=== PATIENT | male | born 1950 | race Caucasian/White ===

== ENCOUNTER 2016-08-26 06:10 | Day surgery (SDC) | payer MEDICARE, OTHER ==
--- NOTE | ~2016-08-26 | EGD ---
EGD REPORT [facility] [address] [id number] NAME: MARKO LINARES : [birth year] STATUS : REG [facility]#: [id number] AGE: 66 ADM/REG DATE : 08/26/16 MR#: [id number] REPORT SERV DATE: 08/26/16 DICTATED BY: LORRAINE SANCHEZ DATE: 08/26/16 REPORT STATUS : Draft TRANSCRIBED BY: [facility] DATE: 08/26/16 Endoscopy Center Patient Name: Marko Linares Date of : 1950 Attending MD: LORRAINE SANCHEZ MD Procedure Date No Time: 08/26/2016 Procedure: Upper GI endoscopy Indications: Dysphagia Referring MD: MARISOL ROWLAND Medicines: See the Anesthesia note for documentation of the administered medications Complications: No immediate complications. Procedure: Pre-Anesthesia Assessment: - ASA Grade Assessment: III - A patient with severe systemic disease. After obtaining informed consent, the endoscope was passed under direct vision. Throughout the procedure, the patient's blood pressure, pulse, and oxygen saturations were monitored continuously. The GIF [id number] was introduced through the mouth, and advanced to the second part of duodenum. The upper GI endoscopy was accomplished without difficulty. The patient tolerated the procedure well. Findings: The examined duodenum was normal. The entire examined stomach was normal. The cardia and gastric fundus were normal on retroflexion. A small hiatus hernia was present. A moderate Schatzki ring (acquired) was found at the gastroesophageal junction. A guidewire was placed and the scope was withdrawn. Dilation was performed with a Savary dilator with no resistance at 48 Fr. Impression: - Normal examined duodenum. - Normal stomach. - Hiatus hernia. - Moderate Schatzki ring. Dilated. Recommendation: - Patient has a contact number available for emergencies. The signs and symptoms of potential delayed complications were discussed with the patient. Return to normal activities tomorrow. Written discharge instructions were provided to the patient. - Clear liquid diet today. - Continue present medications. EGD REPORT [address] [address] NAME: MARKO LINARES : [birth year] STATUS : REG [facility]#: [id number] AGE: 66 ADM/REG DATE : 08/26/16 MR#: [id number] REPORT SERV DATE: 08/26/16 DICTATED BY: LORRAINE SANCHEZ DATE: 08/26/16 REPORT STATUS : Draft TRANSCRIBED BY: [employer] DATE: 08/26/16 - Clear liquids today, soft diet tomorrow, regular diet the following day Procedure Code(s): --- Professional --- 17361, Esophagogastroduodenoscopy, flexible, transoral; with insertion of guide wire followed by passage of dilator(s) through esophagus over guide wire Diagnosis Code(s): --- Professional --- K44.9, Diaphragmatic hernia without obstruction or gangrene K22.2, Esophageal obstruction R13.10, Dysphagia, unspecified CPT copyright 2013 [employer]. All rights reserved. The codes documented in this report are preliminary and upon upper cutter out review may be revised to meet current compliance requirements. Lorraine Sanchez MD LORRAINE SANCHEZ MD 08/26/2016 8:33 AM This report has been signed electronically. Number of Addenda: 0 Note Initiated On: 08/26/2016 8:23 AM Scope Withdrawal Time 0 hours 0 minutes 0 seconds [address] [id number]
--- NOTE | ~2016-08-26 | EGD ---
EGD REPORT [facility] [address] [address] NAME: MARKO LINARES : [birth year] STATUS : REG [facility]#: [id number] AGE: 66 ADM/REG DATE : 08/26/16 MR#: [id number] REPORT SERV DATE: 08/26/16 DICTATED BY: LORRAINE SANCHEZ DATE: 08/26/16 REPORT STATUS : Draft [facility]ANSCRIBED BY: [facility] DATE: 08/26/16 Endoscopy Center Patient Name: Marko Linares Date of : 1950 Attending MD: LORRAINE SANCHEZ MD Procedure Date No Time: 08/26/2016 Procedure: Colonoscopy Indications: Colon cancer screening in patient at increased risk: Colorectal cancer in mother, Last colonoscopy: 2010 Referring MD: MARISOL ROWLAND Medicines: See the Anesthesia note for documentation of the administered medications Complications: No immediate complications. Procedure: Pre-Anesthesia Assessment: - ASA Grade Assessment: III - A patient with severe systemic disease. After I obtained informed consent, the scope was passed under direct vision. Throughout the procedure, the patient's blood pressure, pulse, and oxygen saturations were monitored continuously. The CF [id number] was introduced through the anus and advanced to the cecum, identified by appendiceal orifice and ileocecal valve. The colonoscopy was technically difficult and complex due to significant looping. The patient tolerated the procedure well. The quality of the bowel preparation was adequate. Findings: The perianal and digital rectal examinations were normal. Diverticula were found in the sigmoid colon, in the descending colon, in the ascending colon and in the cecum. Internal hemorrhoids were found during retroflexion and were medium-sized. Impression: - Diverticulosis in the sigmoid colon, in the descending colon, in the ascending colon and in the cecum. - Internal hemorrhoids. Recommendation: - Patient has a contact number available for emergencies. The signs and symptoms of potential delayed complications were discussed with the patient. Return to normal activities tomorrow. Written discharge instructions were provided to the patient. - Continue present medications. - Repeat colonoscopy in 5 years for screening purposes. EGD REPORT [address] [address] NAME: MARKO LINARES : [birth year] STATUS : REG [facility]#: [id number] AGE: 66 ADM/REG DATE : 08/26/16 MR#: [id number] REPORT SERV DATE: 08/26/16 DICTATED BY: LORRAINE SANCHEZ DATE: 08/26/16 REPORT STATUS : Draft TRANSCRIBED BY: [employer] DATE: 08/26/16 - Clear liquid diet today. Procedure Code(s): --- Professional --- 22828, Colonoscopy, flexible, proximal to splenic flexure; diagnostic, with or without collection of specimen(s) by brushing or washing, with or without colon decompression (separate procedure) Diagnosis Code(s): --- Professional --- K64.8, Other hemorrhoids K57.30, Diverticulosis of large intestine without perforation or abscess without bleeding Z12.11, Encounter for screening for malignant neoplasm of colon Z80.0, Family history of malignant neoplasm of digestive organs CPT copyright 2013 [employer]. All rights reserved. The codes documented in this report are preliminary and upon medical billing coder review may be revised to meet current compliance requirements. Lorraine Sanchez MD LORRAINE SANCHEZ MD 08/26/2016 8:48 AM This report has been signed electronically. Number of Addenda: 0 Note Initiated On: 08/26/2016 8:18 AM Scope Withdrawal Time 0 hours 6 minutes 41 seconds [address] [place] [id number]
[~2016-08-26 06:10] MED LIST: ALEVE220 MG PO; ASAB PO; EFFIENT10 PO; INSNOVN PO; INSNOVN SC; INSNOVR; KDUR20 PO; L40 PO; LIPITOR40 PO; LISINOPRIL40 MG PO; LOP100 PO; NIFEDICAL XL60 MG PO
== END 2016-08-26 23:59 | disposition home or self-care (01) ==
LOC: DMU 06:10
PROVIDERS: Internal Medicine Gastroenterology
PROC: 0DJD8ZZ Inspection of Lower Intestinal Tract, Via Natural or Artificial Opening Endoscopic (ICD-10-PCS; principal; 2016-08-26 08:30)
PROC: 0DJ08ZZ Inspection of Upper Intestinal Tract, Via Natural or Artificial Opening Endoscopic (ICD-10-PCS; 2016-08-26 08:30)
DX: Z12.11 Encounter for screening for malignant neoplasm of colon (principal); K64.8 Other hemorrhoids; K57.30 Diverticulosis of large intestine without perforation or abscess without bleeding; R13.10 Dysphagia, unspecified; K44.9 Diaphragmatic hernia without obstruction or gangrene; K22.2 Esophageal obstruction; I10 Essential (primary) hypertension; L40.9 Psoriasis, unspecified; E78.00 Pure hypercholesterolemia, unspecified; I25.10 Atherosclerotic heart disease of native coronary artery without angina pectoris; E11.9 Type 2 diabetes mellitus without complications; M19.90 Unspecified osteoarthritis, unspecified site; E66.9 Obesity, unspecified; H91.90 Unspecified hearing loss, unspecified ear; Z97.2 Presence of dental prosthetic device (complete) (partial); Z98.890 Other specified postprocedural states; Z95.1 Presence of aortocoronary bypass graft; Z95.5 Presence of coronary angioplasty implant and graft; Z80.0 Family history of malignant neoplasm of digestive organs; Z79.899 Other long term (current) drug therapy; Z79.1 Long term (current) use of non-steroidal anti-inflammatories (NSAID); Z79.82 Long term (current) use of aspirin; Z79.4 Long term (current) use of insulin
CPT/HCPCS: 43238; G0105; 82962